=== PATIENT | female | born 1955 | race Caucasian/White ===

== ENCOUNTER 2023-12-09 08:14 | Observation (INO) | payer MEDICARE ==
[2023-12-08 11:32] LABS: BASOPHILS # (AUTO) 0.02 K/uL (0.00-0.20); BASOPHILS % (AUTO) 0.4 % (0.0-5.0); EOSINOPHILS # (AUTO) 0.03 K/uL (0.00-0.70); EOSINOPHILS % (AUTO) 0.5 % (0.0-8.0); HEMATOCRIT 41.3 % (36-48); IMMATURE GRANULOCYTE ABSOLUTE 0.02 K/uL (0-1); LYMPHOCYTES # (AUTO) 1.1 K/uL (1.0-4.8); LYMPHOCYTES % (AUTO) 20.3 % (21.0-51.0); MEAN CORPUSCULAR HEMOGLOBIN 35.4 pg (27.0-33.0); MEAN CORPUSCULAR HGB CONC 34.9 g/dL (32.0-36.0); MEAN CORPUSCULAR VOLUME 101.5 fL (79-99); MONOCYTES # (AUTO) 0.6 K/uL (0.1-1.0); MONOCYTES % (AUTO) 10.4 % (3.0-13.0); NEUTROPHILS # (AUTO) 3.7 K/uL (1.8-7.7); PLATELET COUNT (AUTO) 178 K/uL (130-400); RED BLOOD CELL COUNT(AUTO) 4.07 MIL/uL (4.00-5.50); RED CELL DISTRIBUTION WIDTH 14.9 % (11.0-15.5); WHITE BLOOD COUNT (AUTO) 5.5 K/uL (4.8-10.8)
[2023-12-08 11:39] VITALS: BP 131/75; PULSE 81; RESP 19
[2023-12-08 11:43] LABS: CREATININE 0.7 mg/dL (0.5-1.0); POTASSIUM 5.2 mmol/L (3.5-5.1)
[~2023-12-09] VITALS: Ht 175.3 cm; Wt 61.2 kg
[2023-12-09] VITALS (26 sets, daily range): BP systolic 95–134; BP diastolic 53–77; PULSE 63–99; RESP 16–22; O2SAT 97
[~2023-12-09 08:14] MED LIST: CARB1TAB35 PO; DORZ10DR32 OU; LATA2.5D14 OP; PRIM50TA23 PO
[2023-12-09] MEDS: CEFAZOLIN SODIUM 2 GM VIAL ONE (09:20)
[2023-12-09] MEDS: LACTATED RINGERS 1000ML 1,000 ML IV ONE (09:20)
[2023-12-09] MEDS: ACETAMINOPHEN 1,000 MG/100 ML VIAL IV ONE (14:12)
[2023-12-09] MEDS: FAMOTIDINE 20MG VIAL IV ONE (14:12)
[2023-12-09] MEDS ORDERED: ALBUTEROL INHALER 90MCG/INH IH ONE (14:15)
[2023-12-09] MEDS ORDERED: MIDAZOLAM HCL 1 MG/ML 2ML VIAL ONE (14:28)
[2023-12-09] MEDS ORDERED: PROPOFOL 10 MG/ML 20ML VIAL IV ONE (14:29)
[2023-12-09] MEDS ORDERED: ONDANSETRON 4MG INJ ONE (14:29)
[2023-12-09] MEDS ORDERED: ROCURONIUM BROMIDE 10MG/1ML 5ML VL ONE (14:29)
[2023-12-09] MEDS: METRONIDAZOLE 500MG/100ML BAG 200 ML ONE (14:35)
[2023-12-09] MEDS ORDERED: PHENYLEPHRINE HCL 10 MG/ML 1ML VIAL IV ONE (14:37)
[2023-12-09] MEDS ORDERED: FENTANYL CITRATE PF 50 MCG/1 ML 2ML VIAL ONE (14:44)
[2023-12-09] MEDS: BUPIVACAINE/PF 0.25% 30ML VIAL IJ ONE (14:46)
[2023-12-09] MEDS: IOHEXOL-350 50ML VIAL IV ONE (14:46)
[2023-12-09] MEDS ORDERED: GLYCOPYRROLATE 0.2 MG/ML 5 ML VIAL ONE (16:47)
[2023-12-09] MEDS ORDERED: NEOSTIGMINE METHYLSULFATE 1MG/ML IV ONE (16:47)
[2023-12-09] MEDS ORDERED: MORPHINE 2 MG SYG IV PRN (17:00)
[2023-12-09] MEDS ORDERED: ACETAMINOPHEN 650 MG SUPPOSITORY RC PRN (17:00)
[2023-12-09] MEDS: LACTATED RINGERS 1000ML 1,000 ML IV SCH (17:00)
[2023-12-09] MEDS ORDERED: HYDROCODONE/ACETAMINOPHEN 5/325 MG TAB PO PRN ×2 (17:00)
[2023-12-09] MEDS ORDERED: ONDANSETRON 4MG INJ IVP PRN (17:00)
[2023-12-09] MEDS: LATANOPROST 2.5 ML DROPS OP SCH (19:58)
[2023-12-09] MEDS: PRIMIDONE 50 MG TAB PO SCH (20:17)
[2023-12-09] MEDS: CARBIDOPA-LEVODOPA 25-100 TAB PO SCH (20:17)
[2023-12-10 00:11] VITALS: BP 135/74; PULSE 60; RESP 20
[2023-12-10 04:00] VITALS: BP 121/70; PULSE 66; RESP 20
[2023-12-10 08:26] VITALS: BP 94/70; PULSE 70; RESP 18
[2023-12-10] MEDS: ENOXAPARIN SODIUM 30 MG/0.3 ML SQ SCH (09:07)
== END 2023-12-10 12:15 | disposition home or self-care (01) ==
LOC: DAH 08:14 → DAHIP 08:15 → 3DH 18:26
PROVIDERS: ADMIT Surgery; ATTEND Surgery
DX: K80.70 Calculus of gallbladder and bile duct without cholecystitis without obstruction (principal); I27.20 Pulmonary hypertension, unspecified; K66.0 Peritoneal adhesions (postprocedural) (postinfection); K82.8 Other specified diseases of gallbladder; J84.112 Idiopathic pulmonary fibrosis; M81.0 Age-related osteoporosis without current pathological fracture; J44.9 Chronic obstructive pulmonary disease, unspecified; I25.10 Atherosclerotic heart disease of native coronary artery without angina pectoris; F17.210 Nicotine dependence, cigarettes, uncomplicated; K74.60 Unspecified cirrhosis of liver; G20.A1 Parkinson's disease without dyskinesia, without mention of fluctuations; Z79.899 Other long term (current) drug therapy
CPT/HCPCS: 80048; 85025; 86850; 86900; 86901; 36415 ×2; 93005; 47563; 84132; 96372; A6260; G0378 ×18; A4600; A4663; J7030; J7120 ×2; A4215 ×2; C1758; J3490 ×4; J3010; J0665; J2250; J2704; J2405; J2710; J2371; Q9967; J0690; C1769 ×3; G0168; A4649 ×2; A4223; A4222; A4221; J1650

== ENCOUNTER → 2024-03-02 | Outpatient (CLI) | payer MEDICARE ==
[2024-03-02 16:35] LABS: CREATININE 0.8 mg/dL (0.5-1.0); POTASSIUM 4.6 mmol/L (3.5-5.1)
== END | disposition home or self-care (01) ==
LOC: LAB 13:52
PROVIDERS: ATTEND Internal Medicine Cardiovascular Disease
DX: I27.0 Primary pulmonary hypertension (principal); R60.9 Edema, unspecified
CPT/HCPCS: 36415; 80048; 83880

== ENCOUNTER → 2024-03-06 | Outpatient (CLI) | payer MEDICARE | END | disposition home or self-care (01) | LOC: SHCH 12:57 | PROVIDERS: ATTEND Internal Medicine Cardiovascular Disease | DX: I87.2 Venous insufficiency (chronic) (peripheral) (principal); I87.1 Compression of vein; R60.9 Edema, unspecified | CPT/HCPCS: 93970 ==

== ENCOUNTER → 2024-03-31 | Outpatient (CLI) | payer MEDICARE ==
[~2024-03-31] MED LIST changes: +ALBUHFA IH; +ASPI-1005 PO; +ATOR10 PO; +CARB-38 PO; -CARB1TAB35 PO; +CLOP75TA32 PO; +DORZ10DR10 OP; -DORZ10DR32 OU; +EMPA10TA PO; +FLUT1BLS12 IH; +FURO40TA5 PO; +MIDO5TAB4 PO; +SPIR25TA6 PO
[2024-03-31 16:46] LABS: CREATININE 0.8 mg/dL (0.5-1.0)
== END | disposition home or self-care (01) ==
LOC: LAB 13:03
PROVIDERS: ATTEND Internal Medicine Cardiovascular Disease
DX: I27.0 Primary pulmonary hypertension (principal)
CPT/HCPCS: 36415; 80048

== ENCOUNTER → 2024-05-07 | Outpatient (CLI) | payer MEDICARE ==
[2024-05-07 12:34] LABS: CHOLESTEROL 110 mg/dL (<200); HDL CHOLESTEROL 39 mg/dL (35-85); LDL DIRECT 66 mg/dL (0-99); TRIGLYCERIDES 81 mg/dL (30-200)
== END | disposition home or self-care (01) ==
LOC: LAB 11:13
PROVIDERS: ATTEND Internal Medicine Cardiovascular Disease
DX: E78.5 Hyperlipidemia, unspecified (principal)
CPT/HCPCS: 36415; 80061

== ENCOUNTER → 2024-07-19 | Outpatient (CLI) | payer MEDICARE ==
[2024-07-19 12:51] LABS: CHOLESTEROL 90 mg/dL (<200); HDL CHOLESTEROL 38 mg/dL (35-85); LDL DIRECT 53 mg/dL (0-99); TRIGLYCERIDES 77 mg/dL (30-200)
== END | disposition home or self-care (01) ==
LOC: LAB 10:55
PROVIDERS: ATTEND Internal Medicine Cardiovascular Disease
DX: E78.5 Hyperlipidemia, unspecified (principal)
CPT/HCPCS: 36415; 80061